=== PATIENT | female | born 1950 | race Caucasian/White ===

== ENCOUNTER 2017-05-06 09:26 | Emergency (ER) | payer MEDICARE ==
[~2017-05-06] VITALS: Ht 160 cm; Wt 80.0 kg
[2017-05-06 09:47] VITALS: BP 144/80
[2017-05-06] MEDS ORDERED: IBUPROFEN 800 MG TAB PO ONE (10:45)
== END 2017-05-06 11:18 | disposition home or self-care (01) ==
LOC: ER 09:26
DX: S29.011A Strain of muscle and tendon of front wall of thorax, initial encounter (principal); W22.8XXA Striking against or struck by other objects, initial encounter; Y93.01 Activity, walking, marching and hiking; Y99.8 Other external cause status; Y92.89 Other specified places as the place of occurrence of the external cause
CPT/HCPCS: 71101